=== PATIENT | female | born 2000 | race Hispanic/Latino ===

== ENCOUNTER 2024-10-02 11:21 | Emergency (ER) | payer SELFPAY ==
[2024-10-02] MEDS ORDERED: Ibuprofen 200 MG TAB ONE (12:24)
[2024-10-02] MEDS ORDERED: Acetaminophen 325 MG TAB ONE (12:25)
[2024-10-02 13:11] LABS: Bilirubin Neg (Negative); Blood, Urine 10 (Negative); Clarity Slightly Cloudy (Clear); Glucose, Urine (Dipstick) Normal (Negative); Ketone, Urine 50 mg/dL (Negative); Leukocyte 25 (Negative); Nitrite Negative (Negative); Protein, Urine (Dipstick) 30 mg/dl (Neg-Trace)
[2024-10-02 13:14] LABS: Pregnancy Test - Urine (BHCG) Negative (Negative); Pregu Control Background? CLEAR/WHITE (CLR/WHITE); Pregu Control Bar Appear? YES (CONTROL BAR)
[2024-10-02 13:33] LABS: Bacteria/HPF 2+ HPF (None Seen); CAUTI Indications for Culture Fever or rigors; RBC/HPF 0-3 HPF (0-3)
[2024-10-02 13:34] LABS: Urine Culture Reflex No No
== END 2024-10-02 13:47 | disposition home or self-care (01) ==
LOC: CSHERS 11:21
DX: B34.9 Viral infection, unspecified (principal)
CPT/HCPCS: 81001; 81025; 87081; 87428; 87430; 99283